=== PATIENT | female | born 1955 | race Caucasian/White ===

== ENCOUNTER 2019-03-12 16:07 | Outpatient (CLI) | payer MEDICARE, SELFPAY ==
--- NOTE | 2019-03-12 16:39 | XR_ITS ---
WS: [id number] RIGHT KNEE: 3 VIEW(S) TECHNIQUE: AP, oblique(s) and lateral. HISTORY: PAIN IN RIGHT KNEE, LATERAL ASPECT COMPARISON: None available. No fracture or dislocation. Mild narrowing of all 3 compartments. No fractures. No joint effusion. No soft tissue abnormality. XR/XR knee RT 3V* [id number] IMPRESSION: 1. Very mild tricompartment osteoarthritis. 2. No fracture.
== END 2019-03-12 16:08 | disposition home or self-care (01) ==
LOC: RADWPI 16:19
PROVIDERS: PCP Internal Medicine; Visit Provider Internal Medicine
DX: M25.561 Pain in right knee (principal)
CPT/HCPCS: 73562

== ENCOUNTER 2019-03-15 07:41 | Outpatient (CLI) | payer MEDICARE, SELFPAY ==
--- NOTE | 2019-03-15 07:58 | MR_ITS ---
WS: [id number] MRI RIGHT KNEE NONCONTRAST TECHNIQUE: Axial PD, coronal PD fat sat, coronal PD, sagittal PD, and sagittal PD fat-sat images obta ined. CLINICAL INFORMATION: PAIN IN RIGHT KNEE COMPARISON: None. FINDINGS: Distal quadriceps and patella tendons are intact. Prepatellar soft tissue edema. Moderate suprapatell ar effusion. Soft tissue edema about the knee. Popliteal cyst measuring 1.3 x 2.6 x 4.2 cm. Anterior and posterior cruciate ligaments are intact. Chronic intrasubstance signal abnormality invol ving the medial meniscus. Edema in Hoffa's fat pad. Complex tears involving the lateral meniscus. Hor izontal and radial tears involving the posterior horn lateral meniscus. Blunting of the anterior horn with complex tear and loss of the anterior horn. Associated edema. Mild chondromalacia patella. Normal medial and lateral patellar retinaculum. Moderate chondromalacia involving the medial and lateral joint compartments with edema in the lateral tibial plateau. Partial tear involving the lateral collateral ligament. Distal ligament is intact. T2 signal abnormality. Me dial collateral ligament is intact. MR/MR knee RT wo con* [id number] IMPRESSION: 1. Anterior posterior cruciate ligaments are intact. 2. Complex tear involving the lateral meniscus with complete loss of the anter ior horn with edema. Horizontal and radial tears involving the posterior horn. Associated edema in the lateral tibial plateau. 3. Moderate suprapatellar effusion. 4. Popliteal cyst measuring 4.2 cm in maximum dimension. 5. Moderate chondromalacia patella. 6. Moderate chondral malacia involving the medial lateral joint compartments w ith joint space narrowing worse involving the lateral compartment. 7. Partial tear involving the proximal lateral collateral ligament. Distal lig ament is intact.
== END 2019-03-15 07:42 | disposition home or self-care (01) ==
LOC: RADWPI 07:49
PROVIDERS: PCP Internal Medicine; Visit Provider Internal Medicine
DX: S83.271A Complex tear of lateral meniscus, current injury, right knee, initial encounter (principal); X58.XXXA Exposure to other specified factors, initial encounter; M71.21 Synovial cyst of popliteal space [Baker], right knee; M22.41 Chondromalacia patellae, right knee; M25.561 Pain in right knee
CPT/HCPCS: 73721

== ENCOUNTER → 2019-04-02 09:03 | Outpatient (BNVA) | payer MEDICARE, SELFPAY | PROVIDERS: PCP Internal Medicine; Referring Provider Internal Medicine; Visit Provider Specialist | DX: M25.561 Pain in right knee (principal) | CPT/HCPCS: 73560; 73565 ==

== ENCOUNTER 2019-11-02 10:18 | Outpatient (CLI) | payer MEDICARE, SELFPAY ==
--- NOTE | 2019-11-02 10:29 | MM_ITS ---
WS: [id number] BILATERAL SCREENING DIGITAL MAMMOGRAM WITH CAD HISTORY: SCREENING COMPARISON: 03/22/2017 and 07/11/2018 Bilateral CC and MLO views submitted. Computer aided detection analyzed. Breast composition: There are scattered areas of fibroglandular density. No suspicious masses, microc alcifications or architectural distortion. MM/[place] [id number] IMPRESSION: BI-RADS: 1-Negative FOLLOW UP: 1 Year Follow-up
== END 2019-11-02 10:19 | disposition home or self-care (01) ==
LOC: RADSHAW 10:21
PROVIDERS: PCP Internal Medicine; Visit Provider Internal Medicine
DX: Z12.31 Encounter for screening mammogram for malignant neoplasm of breast (principal)
CPT/HCPCS: 77067

== ENCOUNTER → 2020-02-07 08:19 | Outpatient (BNVA) | payer MEDICARE, SELFPAY | PROVIDERS: PCP Internal Medicine; Visit Provider Surgery | DX: Z20.828 Contact with and (suspected) exposure to other viral communicable diseases (principal); Z12.11 Encounter for screening for malignant neoplasm of colon; Z01.812 Encounter for preprocedural laboratory examination | CPT/HCPCS: 87635 ==

== ENCOUNTER → 2020-02-13 10:35 | Outpatient (BNVA) | payer MEDICARE, SELFPAY | PROVIDERS: PCP Internal Medicine; Visit Provider Surgery | DX: Z20.828 Contact with and (suspected) exposure to other viral communicable diseases (principal); Z12.11 Encounter for screening for malignant neoplasm of colon | CPT/HCPCS: 87635 ==

== ENCOUNTER 2020-02-18 05:48 | Day surgery (SDC) | payer MEDICARE, SELFPAY ==
[2020-02-07 14:04] VITALS: BMI 36.6
[2020-02-18 05:58] VITALS: BP 168/94; PULSE 93; RESP 18; TEMP 36.6; O2SAT 98
--- NOTE | 2020-02-18 06:14 | W.PM.OPSFHP ---
Same Day Surgery H&P Indication for Procedure/HPI DATE OF PROCEDURE: February 18, 2020 CHIEF COMPLAINT/INDICATIONFOR SURGICAL PROCEDURE: Screening colonoscopy PREOP DIAGNOSIS: Screening colonoscopy PLANNED PROCEDRUE: Operation Date: 02/18/20 07:00 Proposed Procedures p Colonoscopy 71862 z12.11(Not Applicable) - Mihir Noble MD This is a pleasant 64 years old female patient presents to my practice with history of colonoscopy being done about 10 years ago and was reported as normal. Patient recalls that she has intermittent bleeding per rectum likely due to hemorrhoidal disease. She denies history of colon cancer or nonintentional weight loss. Interval history 02/18/2020 Patient comes today for screening colonoscopy ROS All systems have been reviewed negative except as per the above or per problem list Medications/Allergies* Home Medications Medication Instructions Recorded Confirmed Type lovastatin 20 mg tablet 20 mg PO DAILY 04/02/19 02/18/20 History Allergies/Adverse Reactions Allergy/AdvReac Type Severity Reaction Status Date / Time Penicillins Allergy hives Verified 02/18/20 06:14 Sulfa (Sulfonamide Allergy anaphylaxis Verified 02/18/20 06:14 Antibiotics) Pertinent History/Comorbid Conditions* Family History (Updated 04/02/19 @ 09:35 by Kayce Kauffman LPN) Diabetes Mother Social History Smoking and tobacco status: never smoked Alcohol intake: never Pertinent Exam Findings alert, oriented x 3, clear to auscultation bilaterally, regular rate & rhythm and procedure specific exam findings (Abdominal examination nontender nondistended soft/obese) Recommendations Surgery/Procedure today (Colonoscopy with possible biopsy and possible polypectomy) Coding Level of Care Code Acute Carbonation Equipment Operator for Romelia Resendiz
[2020-02-18] MEDS: sodium chloride 0.9% 1,000 ML 30 ML IV (06:23)
--- NOTE | 2020-02-18 06:38 | ANES.PREANE2 ---
Pre-Anesthetic Assessment Pre-Anesthetic Assessment: Height/Weight: Height 1.63 m Weight 96.615 kg Temp Pulse Resp BP Pulse Ox 97.8 F 93 18 168/94 98 02/18/20 05:58 02/18/20 05:58 02/18/20 05:58 02/18/20 05:58 02/18/20 05:58 Preop Diagnosis: Screening colonoscopy Proposed Procedure: Operation Date: 02/18/20 07:00 Proposed Procedures p Colonoscopy 29964 z12.11(Not Applicable) - Mihir Noble MD Was Beta Eddie taken within 24 hours: N/A Last intake: Intake Last Liquid Date 02/17/20 Last Liquid Time 19:30 Last Solid Date 02/16/20 Last Solid Time 21:00 Social: Social History: No alcohol and No tobacco Airway: Submandibular: WNL Cervical ROM: WNL MP: 2 Dentition: Full Pulmonary: Pulmonary: None reported CV/HEM: CV/HEM: None reported : : None reported Hepatic: Hepatic: None reported GI: GI: None reported Metabolic: Metabolic: None reported Musc/skel: Musc/skel: None reported Neuropsych: Neuropsych: None reported Anesthetic Plan: ASA status: 2 Risk of > 500 ml blood loss (7ml/kg in children): No Meds/Allergies Current Medications: Current Medications Generic Name Dose Route Start Last Admin Trade Name Freq PRN Reason Stop Dose Admin Sodium Chloride 1,000 mls @ 30 ml s/hr 02/18/20 06:00 02/18/20 06:23 Sodium Chloride 0.9% IV 02/19/20 05:59 30 mls/hr .Q24H LINDSEY Administration PFSH Anesthesia PFSH: Family History Mother Diabetes Social History Smoking and tobacco status: never smoked Alcohol intake: never Data Anesthesia Cardiac Studies: No Data to Display
[2020-02-18 07:23] VITALS: BP 168/94; PULSE 93; RESP 18; TEMP 36.6; O2SAT 98
[2020-02-18 07:45] VITALS: BP 117/77; PULSE 66; RESP 18; O2SAT 96
--- NOTE | 2020-02-18 07:53 | ANE.PACU2 ---
Inpatient post-anesthesia follow up: Airway intact: Yes Vital signs: Temperature 97.8 F Pulse Rate 66 Respiratory Rate 18 Blood Pressure 117/77 Pulse Oximetry 96 Oxygen Delivery Me thod Room Air Oxygen Flow Rate 2 Fraction of Inspir ed Oxygen Hydration adequate: Yes Nausea and vomiting: No Pain level: 1 Mental status: Baseline
== END 2020-02-18 07:57 | disposition home or self-care (01) ==
PROVIDERS: PCP Internal Medicine; Visit Provider Surgery
PROC: 0DJD8ZZ Inspection of Lower Intestinal Tract, Via Natural or Artificial Opening Endoscopic (ICD-10-PCS; CPT 45378; principal; 2020-02-18 07:00)
DX: Z12.11 Encounter for screening for malignant neoplasm of colon (principal); K57.30 Diverticulosis of large intestine without perforation or abscess without bleeding; Z83.3 Family history of diabetes mellitus
CPT/HCPCS: 12345; G0121; J7030

== ENCOUNTER 2020-12-16 09:10 | Outpatient (CLI) | payer MEDICARE, SELFPAY ==
--- NOTE | 2020-12-16 09:17 | MM_ITS ---
WS: [id number] BILATERAL DIGITAL SCREENING MAMMOGRAPHY WITH CAD CLINICAL INFORMATION: SCREENING HISTORY: Screening mammogram. No current complaints. COMPARISON: November 02, 2019 TECHNIQUE: Bilateral CC and MLO views. FINDINGS: Scattered fibroglandular densities bilaterally. A few benign punctate calcifications. No suspicious f ocal mass, asymmetry, calcifications, or architectural distortion. No evidence of malignancy. MM/[place] [id number] IMPRESSION: BI-RADS: 2-Benign FOLLOW UP: 1 Year Follow-up Recommend return to annual screening mammography.
== END 2020-12-16 09:11 | disposition home or self-care (01) ==
PROVIDERS: PCP Internal Medicine; Visit Provider Internal Medicine
DX: Z12.31 Encounter for screening mammogram for malignant neoplasm of breast (principal)
CPT/HCPCS: 77067

== ENCOUNTER 2020-12-19 14:33 | Outpatient (CLI) | payer MEDICARE, SELFPAY ==
--- NOTE | 2020-12-19 14:51 | XR_ITS ---
WS: [id number] Exam: XR DEXA axial skeleton* [id number] Date/Time of Exam: 12/19/2020 2:51 PM Reason For Exam: ASYMTOMATIC POSTMENOPAUSAL STATUS DEXA BONE DENSITOMETRY Microtask The L1-L4 bone mineral density measures 1.104 g/cm2. This corresponds to a T score of -0.6 and Z scor e of 0.3. Left femoral neck bone mineral density measures 0.831 g/cm2. This corresponds to T score of -1.4 and Z score of -0.6. Right femoral neck bone mineral density measures 0.804 g/cm2. This corresponds to a T score of -1.6 a nd Z score of -0.8. Mean femoral neck bone mineral density measures 0.818 g/cm2. This corresponds to a T score of -1.5 an d Z score of -0.7 XR/XR DEXA axial skeleton* [id number] IMPRESSION: Bone mineral density lies in the osteopenic range. Refer to detailed summary.
== END 2020-12-19 14:34 | disposition home or self-care (01) ==
PROVIDERS: PCP Internal Medicine; Visit Provider Internal Medicine
DX: Z78.0 Asymptomatic menopausal state (principal)
CPT/HCPCS: 77080

== ENCOUNTER 2021-01-02 09:36 | Outpatient (CLI) | payer MEDICARE, SELFPAY ==
[2021-01-02 09:59] VITALS: BMI 33.8
--- NOTE | 2021-01-02 10:00 | ECG_ITS ---
[facility] Test Date: 2021-01-02 Pat Name: Niyah Holt Department: Room: Gender: Female Java Security Architect: : 1955 Requested By: Neelima Patrick Order Number: [id number] Bill MD: Ligia Ni M.D. Interpretive Statements NAME OF STUDY: LEXISCAN SESTAMIBI STRESS TEST INDICATION: Chest Pressure PROCEDURE: At the baseline, the blood pressure was 129/64 mmHg, oxygen saturation 95% with a heart rate of 67 bpm. The electrocardiogram showed normal sinus rhythm, normal axis. Poor anterior R wave progression. Nonspecific T wave abnormality. The Lexiscan was infused over a period of 20 seconds. A total of 0.4 milligrams of Lexiscan was infused. The stress phase was continued for a total of 5 minutes. Heart rate at the end of the stress phase was 85 bpm, oxygen saturation 98% with a blood pressure of 114/50 mmHg. The EKG at the peak infusion revealed sinus rhythm with no significant ST-T wave changes. Sestamibi was injected 20 seconds after the Lexiscan infusion. Blood pressure at the end of the recovery phase was 112/55 mmHg, oxygen saturation 96% with a heart rate of 84 beats per minute. CONCLUSION: 1. No significant EKG changes with the LexiScan infusion. 2. No LexiScan induced chest pain or cardiac arrhythmia. 3. Normal blood pressure and heart rate response. 4. Sestamibi/sestamibi perfusion scan pending; see separate report. Electronically Signed On 01-05-2021 18:15:17 MANAGER ONCOLOGY by Ligia Ni M.D. [email or web address]
--- NOTE | 2021-01-02 10:00 | NMCV_ITS ---
NM aislinn perf SPECT r/s* [id number] Niyah Holt Age: 65 Gender: F : 1955 Exam Date: 01/02/2021 11:02 Ordering Phys: Neeliam Gong MD Technologist: KASANDRA Aguirre Exam Location: [facility] Indications: CHEST PAIN STRESS TEST Please [facility] for [facility] IMAGE PROTOCOL Rest/Stress 1 Lexiscan Day Radiopharmaceutical Dose (mCi) Administration Site Administered by Rest: Tc-99m 10.5 IV Eyal Lerma, KASANDRA Sestamibi Stress:Tc-99m 32.3 IV KASANDRA Nunez Sestamibi Rest: 02-Jan-2021 30 Discovery 630 Stress: 02-Jan-2021 60 Discovery 630 0.4mg Lexiscan. Images obtained in supine and prone position. SPECT RESULTS Technical Quality: Excellent Raw Data Analysis: Normal Image Corrections: No attenuation or motion correction applied Summed Stress Score: 8 Summed Rest Score: 13 Summed Difference Score: 0 PERFUSION FINDINGS Medium size perfusion abnormality of moderate severity of mid to apical inferior, mid to apical inferolateral, apical anterior apical septal and apical grider on rest images with improved tracer uptake in apical septal, apical anterior and inferolateral girder on stress images. This may be suggestive of attenuation artifact. FUNCTIONAL RESULTS (calculated via Gated SPECT) Stress Image LV EF (%): 85 Stress EDV (mL):55 TID: 0.9 Stress ESV (mL):8 FUNCTIONAL FINDINGS: The left ventricle is normal in size. Transient Ischemia Dilatation of 0.9. The left ventricular ejection fraction is normal with a value of 85%. There is hyperdynamic left ventricular wall thickening with no regional wall motion abnormality. IMPRESSIONS 1. Small sized perfusion abnormality of moderate severity of mid to apical inferior and mid inferolateral grider. This may represent attenuation artifact or old myocardial infarction. 2. Small sized paradoxical perfusion abnormality of apical septal and apical grider, likely represents attenuation artifact. 3. Overall left ventricular systolic function is normal without regional wall motion abnormalities, LVEF=85%. 4. No significant EKG changes with Lexiscan infusion. 5. No coronary ischemia based on the study Ligia Ni MD (Electronically Signed) Final Date: 05 January 2021 18:26 S
[2021-01-02] MEDS: regadenoson 0.4 Mg/5 ml Syringe IVP (11:42)
[2021-01-02 11:44] VITALS: BP 112/55; PULSE 82
== END 2021-01-02 09:37 | disposition home or self-care (01) ==
LOC: CDL 09:37
PROVIDERS: PCP Internal Medicine; Visit Provider Internal Medicine
DX: R07.9 Chest pain, unspecified (principal)
CPT/HCPCS: 78452; 93017; A9500; J2785

== ENCOUNTER → 2021-07-08 13:33 | Outpatient (BNVA) | payer MEDICARE, SELFPAY | PROVIDERS: PCP Internal Medicine; Visit Provider Surgery | DX: K95.09 Other complications of gastric band procedure (principal) | CPT/HCPCS: 99213 ==

== ENCOUNTER 2021-09-02 07:20 | Day surgery (SDC) | payer MEDICARE, SELFPAY ==
[2021-08-31 13:30] VITALS: BMI 28.3
[2021-09-02 07:46] VITALS: BP 150/70; PULSE 60; RESP 18; TEMP 36.3; O2SAT 98
[2021-09-02] MEDS: sodium chloride 0.9% 1,000 ML 30 ML IV (08:01)
--- NOTE | 2021-09-02 08:36 | ANES.PREANE2 ---
Pre-Anesthetic Assessment Height/Weight: Height 1.63 m Weight 74.843 kg Temp Pulse Resp BP Pulse Ox 97.3 F L 60 18 150/70 98 09/02/21 07:46 09/02/21 07:46 09/02/21 07:46 09/02/21 07:46 09/02/21 07:46 Preop Diagnosis: Screening colonoscopy Operation Date: 09/02/21 09:00 Proposed Procedures p EGD 27219/R11.2(Not Applicable) - Mihir Noble MD Familial anesthetic complications: None Was Beta Eddie taken within 24 hours: N/A Was Clonidine taken within 24 hours: N/A Last intake: Intake Last Liquid Date 09/01/21 Last Liquid Time 21:30 Last Solid Date 09/01/21 Last Solid Time 17:30 Social No alcohol and No tobacco Exam alert, oriented x 3, clear to auscultation bilaterally and regular rate & rhythm Airway Submandibular: within normal limits Cervical ROM: within normal limits Mallampati: Class II Dentition: full History/ROS No significant complaints Pulmonary None reported CV/HEM None reported None reported Hepatic None reported GI Gastroesophageal Reflux Disease Reflux Hx of gastric band Metabolic None reported Musc/skel Osteoarthritis/DJD Neuropsych None reported Anesthetic Plan ASA status: 2 Anesthesia: Anesthesia Evaluation, General and MAC Other: I discussed with the patient risks, goals, and benefits of MAC and general anesthesia. We discussed spectrum of MAC anesthesia including conversion to general as well as possibility of recall of intraoperative stimuli including discomfort/pain. Patient agrees to proceed with MAC. Risk of > 500 ml blood loss (7ml/kg in children): No Medications/Allergies Home Medications Medication Instructions Recorded Confirmed Last Taken Type lovastatin 20 mg tablet 20 mg PO DAILY 04/02/19 09/02/21 09/01/21 History diphenhydramine HCl 50 mg capsule 50 mg PO DAILY PRN cap 07/08/21 09/02/21 08/30/21 History Allergies Allergy/AdvReac Type Severity Reaction Status Date / Time Penicillins Allergy hives Verified 08/31/21 13:30 Sulfa (Sulfonamide Allergy anaphylaxis Verified 08/31/21 13:30 Antibiotics) Current Medications Generic Name Dose Route Start Last Admin Trade Name Freq PRN Reason Stop Dose Admin Sodium Chloride 1,000 mls @ 30 mls/hr 09/02/21 07:30 09/02/21 08:01 Sodium Chloride 0.9% IV 09/03/21 07:29 30 mls/hr .Q24H LINDSEY Administration PFSH Anesthesia Medical History Diverticulosis Surgical History Hx of laparoscopic gastric banding Family History Mother Diabetes Social History Smoking and tobacco status: never smoked Alcohol intake: never Data Anesthesia Cardiac Studies: Sestamibi Stress Test (Cardiology) 01/02/21
--- NOTE | 2021-09-02 09:01 | W.PM.OPSFHP ---
Same Day Surgery H&P Indication for Procedure/HPI DATE OF PROCEDURE: September 02, 2021 CHIEF COMPLAINT/INDICATIONFOR SURGICAL PROCEDURE: Issues with gastric band PREOP DIAGNOSIS: Screening colonoscopy PLANNED PROCEDURE: Operation Date: 09/02/21 09:00 Proposed Procedures p EGD 58036/R11.2(Not Applicable) - Mihir Noble MD 07/08/2021 This is a pleasant 65 years old female patient well-known to me from previous clinical encounter.? Patient had history of laparoscopic adjustable gastric band placement back in May 2009 and initial weight was 250 pounds and she dropped 180 pounds.? Did regain some Weight back.? Last time the band was adjusted back in 2011.? And she is not sure if she does have some fluid but most likely all the fluid was taken out.? Her description.? Her current weight is 173 pounds with a BMI of 31.6.? Patient reports history of repeated nausea and vomiting with component of difficulty in swallowing in association with worsening acid reflux.? Likely related to her gastric band.? Patient is referred to my practice today for consideration of removal of the gastric band. 09/02/2021 Patient comes today for diagnostic EGD. For unclear reason patient did not get her upper GI study yet ROS All systems have been reviewed negative except as for the above or per problem list. Medications/Allergies* Home Medications Medication Instructions Recorded Confirmed Type lovastatin 20 mg tablet 20 mg PO DAILY 04/02/19 09/02/21 History diphenhydramine HCl 50 mg capsule 50 mg PO DAILY PRN cap 07/08/21 09/02/21 History Allergies/Adverse Reactions Allergy/AdvReac Type Severity Reaction Status Date / Time Penicillins Allergy hives Verified 09/02/21 09:03 Sulfa (Sulfonamide Allergy anaphylaxis Verified 09/02/21 09:03 Antibiotics) Current Medications: Generic Name Dose Route Start Last Admin Trade Name Freq PRN Reason Stop Dose Admin Sodium Chloride 1,000 mls @ 30 mls/hr 09/02/21 07:30 09/02/21 08:01 Sodium Chloride 0.9% IV 09/03/21 07:29 30 mls/hr .Q24H LINDSEY Administration Pertinent History/Comorbid Conditions* Medical History (Updated 07/11/21 @ 16:32 by Mihir Noble MD) Diverticulosis Surgical History (Updated 07/11/21 @ 16:32 by Mihir Noble MD) Hx of laparoscopic gastric banding Family History (Updated 04/02/19 @ 09:35 by Kayce Kauffman RN) Diabetes Mother Social History Smoking and tobacco status: never smoked Alcohol intake: never Pertinent Exam Findings alert, oriented x 3, regular rate & rhythm and procedure specific exam findings (Abdominal examination nontender nondistended soft/palpable port on the left) Pertinent Data Port of the gastric band palpable on the left side of the abdomen Recommendations Surgery/Procedure today (EGD with possible biopsy) Coding Level of Care Code Acute Bus And Trolley Inspecting Dispatcher for Chg Fwd
[2021-09-02 09:20] VITALS: BP 95/59; PULSE 56; RESP 16; TEMP 36.4; O2SAT 100
[2021-09-02 09:30] VITALS: BP 111/59; PULSE 55; RESP 18; O2SAT 98
--- NOTE | 2021-09-02 13:32 | ANE.PACU2 ---
Inpatient post-anesthesia follow up: Airway intact: Yes Vital signs: Temperature 97.5 F Pulse Rate 55 Respiratory Rate 18 Blood Pressure 111/59 Pulse Oximetry 98 Oxygen Delivery Me thod Room Air Oxygen Flow Rate 3 Fraction of Inspir ed Oxygen Hydration adequate: Yes Nausea and vomiting: No Pain level: 1 Mental status: Baseline
== END 2021-09-02 09:55 | disposition home or self-care (01) ==
PROVIDERS: PCP Internal Medicine; Visit Provider Surgery
PROC: 0DJ08ZZ Inspection of Upper Intestinal Tract, Via Natural or Artificial Opening Endoscopic (ICD-10-PCS; CPT 43235; principal; 2021-09-02 09:00)
DX: R11.2 Nausea with vomiting, unspecified (principal); K21.00 Gastro-esophageal reflux disease with esophagitis, without bleeding; K29.50 Unspecified chronic gastritis without bleeding; Z98.84 Bariatric surgery status
CPT/HCPCS: 43239; 88305; J2704; J7030

== ENCOUNTER 2021-09-29 09:02 | Outpatient (CLI) | payer MEDICARE, SELFPAY ==
--- NOTE | 2021-09-29 09:08 | FL_ITS ---
WS: [id number] FL upper GI w air* [id number] REASON FOR EXAM: HX OF LAPAROSCOPIC ADJUSTABLE GASTRIC BANDING FLUOROSCOPY TIME: 2.2 # OF SPOT FILMS: 50 TECHNIQUE: Swallowing of barium was performed in the upright and prone HART and supine LPO positions. Multiple sw allows were evaluated with fluoroscopy and and rapid sequence spot films to evaluate motility. FINDINGS: Normal function of the oral and hypopharynx with no aspiration. Intermittent loss of the primary peristaltic wave in the esophagus with moderate retention of barium and episodes of retrograde reflux from the retained barium. Tertiary contractions. The bearing could be cleared with additional dry swallows. There is a moderately large herniation of gastric fundus into the mediastinum proximal to the lap ban d. There is no Schatzki ring or stricture. There is relatively free reflux. The barium flowed readily through the banded stomach and through the pylorus and duodenum. FL/FL upper GI w air* [id number] IMPRESSION: Esophageal dysmotility, and reflux as above.
== END 2021-09-29 09:03 | disposition home or self-care (01) ==
LOC: RAD 09:02
PROVIDERS: PCP Internal Medicine; Visit Provider Surgery
DX: Z98.84 Bariatric surgery status (principal)
CPT/HCPCS: 74246

== ENCOUNTER → 2021-10-05 08:41 | Outpatient (BNVA) | payer MEDICARE, SELFPAY | PROVIDERS: PCP Internal Medicine; Visit Provider Surgery | DX: Z09 Encounter for follow-up examination after completed treatment for conditions other than malignant neoplasm (principal); K95.09 Other complications of gastric band procedure | CPT/HCPCS: 99213 ==

== ENCOUNTER 2021-11-09 16:58 | Observation (INO) | payer MEDICARE, SELFPAY ==
[2021-11-06 13:54] VITALS: BMI 27.4
[2021-11-09] VITALS (27 sets, daily range): BP systolic 105–151; BP diastolic 43–85; PULSE 65–102; RESP 13–21; TEMP 36.2–37.1; O2SAT 92–100; BMI 29.7
--- NOTE | 2021-11-09 06:12 | W.PM.OPSFHP ---
Same Day Surgery H&P Indication for Procedure/HPI DATE OF PROCEDURE: November 09, 2021 CHIEF COMPLAINT/INDICATIONFOR SURGICAL PROCEDURE: Worsening acid reflux PREOP DIAGNOSIS: Difficulty in swallowing PLANNED PROCEDURE: Operation Date: 11/09/21 07:00 Proposed Procedures p lap poss open removal of lap band and egd [id number] ,K95.09(Not Applicable) - Mihir Noble MD s EGD(Not Applicable) - Mihir Noble MD This is a pleasant 66 years old female patient comes today for schedule laparoscopic removal of adjustable gastric band possible open with intraoperative EGD. Patient was placed on liquid protein diet to downsize the volume of the liver with a current weight of 160 pounds and a BMI of 27.5 ROS All systems have been reviewed negative except as for the above or per problem list. Medications/Allergies* Home Medications Medication Instructions Recorded Confirmed Type lovastatin 20 mg tablet 20 mg PO DAILY 04/02/19 11/09/21 History diphenhydramine HCl 50 mg capsule 50 mg PO DAILY PRN allergies 07/08/21 11/09/21 History Allergies/Adverse Reactions Allergy/AdvReac Type Severity Reaction Status Date / Time Penicillins Allergy hives Verified 11/09/21 06:13 Sulfa (Sulfonamide Allergy anaphylaxis Verified 11/09/21 06:13 Antibiotics) Pertinent History/Comorbid Conditions* Medical History (Updated 09/02/21 @ 09:27 by Mihir Noble MD) Diverticulosis Surgical History (Updated 07/11/21 @ 16:32 by Mihir Noble MD) Hx of laparoscopic gastric banding Family History (Updated 04/02/19 @ 09:35 by Kayce Kauffman RN) Diabetes Mother Social History Smoking and tobacco status: never smoked Alcohol intake: never Pertinent Exam Findings alert, oriented x 3, clear to auscultation bilaterally, regular rate & rhythm and procedure specific exam findings (Abdominal exam nontender nondistended soft) Gastric band port in the epigastric area without complication Pertinent Data Patient will require to be kept in an observation status postoperatively Recommendations Surgery/Procedure today (Laparoscopic removal of gastric band possible open with EGD) Coding Level of Care Code Acute Aerophysics Engineer for Romelia Resendiz
[2021-11-09] MEDS: sodium chloride 0.9% 1,000 ML 999 ML IV (06:29)
[2021-11-09] MEDS: pantoprazole 40 mg SDV IVP (06:33)
[2021-11-09] MEDS: heparin 5,000 unit/mL INJ 1 mL 5000 UNIT SUBCUT (06:35)
--- NOTE | 2021-11-09 06:36 | ANES.PREANE2 ---
Pre-Anesthetic Assessment Height/Weight: Height 1.63 m Weight 72.575 kg Temp Pulse Resp BP Pulse Ox O2 Del Method 97.5 F L 65 18 134/68 98 11/09/21 06:01 11/09/21 06:01 11/09/21 06:01 11/09/21 06:01 11/09/21 06:01 11/09/21 06:01 Preop Diagnosis: Difficulty in swallowing Operation Date: 11/09/21 07:00 Proposed Procedures p lap poss open removal of lap band and egd [id number] 80365 ,K95.09(Not Applicable) - Mihir Noble MD s EGD(Not Applicable) - Mihir Noble MD Familial anesthetic complications: None Was Beta Eddie taken within 24 hours: N/A Was Clonidine taken within 24 hours: N/A Last intake: Intake Last Liquid Date 11/08/21 Last Liquid Time 21:00 Last Solid Date 11/02/21 Social No alcohol and No tobacco Exam alert, oriented x 3, clear to auscultation bilaterally and regular rate & rhythm Airway Mallampati: Class I Dentition: full GI Gastroesophageal Reflux Disease Gastritis, hx lap band Anesthetic Plan ASA status: 2 Anesthesia: General Risk of > 500 ml blood loss (7ml/kg in children): No Medications/Allergies Home Medications Medication Instructions Recorded Confirmed Last Taken Type lovastatin 20 mg tablet 20 mg PO DAILY 04/02/19 11/09/21 11/08/21 History diphenhydramine HCl 50 mg capsule 50 mg PO DAILY PRN allergies 07/08/21 11/09/21 11/08/21 20:00 History pantoprazole 40 mg tablet,delayed 40 mg PO DAILY 30 days #30 tabs 09/02/21 11/09/21 11/08/21 Rx release (Protonix) Allergies Allergy/AdvReac Type Severity Reaction Status Date / Time Penicillins Allergy hives Verified 11/09/21 06:13 Sulfa (Sulfonamide Allergy anaphylaxis Verified 11/09/21 06:13 Antibiotics) Current Medications Generic Name Dose Route Start Last Admin Trade Name Freq PRN Reason Stop Dose Admin Sodium Chloride 1,000 mls @ 999 mls/hr 11/09/21 06:17 11/09/21 06:29 Sodium Chloride 0.9% IV 11/09/21 07:17 999 mls/hr .Q1H1M ONE Administration PFSH Anesthesia Medical History Diverticulosis Surgical History Hx of laparoscopic gastric banding Family History Mother Diabetes Social History Smoking and tobacco status: never smoked Alcohol intake: never Data Anesthesia Cardiac Studies: Sestamibi Stress Test (Cardiology) 01/02/21
[2021-11-09] MEDS: scopolamine 1.5 Patch 1 PATCH TRANSDERMA (06:38)
[2021-11-09] MEDS: ciprofloxacin 400 MG/200 ML PREMIX 200 MG IV (07:10)
--- NOTE | 2021-11-09 09:56 | P.OP_ITS ---
Operative Report Date of procedure: November 09, 2021 Pre-op diagnosis: Preop Diagnosis Difficulty in swallowing Procedure done: Laparoscopic removal of gastric band and intraoperative EGD Implants: 15 Chilean rounded Eliezer drain Specimens removed/disposition: Gastric polyp Gastric band for gross pathology Surgeon: Mihir Noble MD Theatrical Dresser: Surgical sue [place] Circulating nurse Yuliana Anesthesia: General (GETA LOKIE ENGINEER Will Smart and Sameera) Estimated blood loss (mL): 25 IV fluids (mL): 1,400 Procedure: After identifying the patient in the holding area, patient was given Heparin subcutaneous, patient was then taken to the OR placed in supine position, intubated by anesthesia, IV antibiotics were given per protocol, SCDs were on and functioning, and the blockers were updated. Attempt Roy catheter insertion was not successful and I decided to abort, prep and drape of the abdomen was done under the usual sterile technique. I started by 15 cm below the xiphoid and 3 cm to the left of the midline 15 blade knife was used for skin incision, I used a 5 mm Opti-Vu port access to the abdominal cavity with a (0)10 mm scope, low flow gas followed by high flow at a pressure of 15 mm, followed by 5 mm trocar was placed at the left flank region again under direct visualization. Anesthesia was asked to have the patient in reverse T Britt.Under direct vision I was able to place a 12 mm port at the epigastric region towards the left of the midline , followed by 5 mm trocar was placed 3 fingerbreadths below the 12 mm trocar and towards the midline. Patient's liver size was markedly downsized with the help of preoperative liquid protein diet I started Dissection using the Enseal device at the band(Realize Brand) site following the tubing system ,combination of sharp and blunt dissection was used revealing the band encircling the stomach and evidence of pseudocapsule was noticed.I was able to take all adhesions down with appropriate hemostasis without violating the stomach.,appropriate dissection was achieved freeing the band from the surrounding adhesions. At this point I was able to unbuckle the band buckle,at this point the band was completely freed out from the encirclement around the stomach. I elected to put 2-0 silk sutures and 3 for hemostasis at the site of explantation of the band and there was no evidence of violation of the stomach. I scrubbed out and inserted in an upper endoscopy for completion purpose and had my virtual customer assistant to clamp distally onto the stomach,irrigation was done,I insufflated gas within the stomach to check for any leaks and there was nothing identified nor injuries, was no evidence of leak of air within the abdominal cavity,the esophagus and stomach looked within normal, the upper endoscopy was performed under direct visualization of the laparoscopic view. A small polyp was found in the gastric body that was removed and Endo Clip was placed At that point I deflated the stomach and the scope was retrieved out without complication I re-scrubbed again and created transverse incision at the previous scar of the actual port placement, I was able to dissect it and laparoscopically I cut the tubing and retrieved the port part and passed it to the circulating nurse for gross pathology, the rest of the tubing and the band system was retrieved out from the epigastric 12 mm trocar and the whole band system now was sent for gross pathology. Unfortunately the port was placed far away from the insertion site of the tubing that required 2 counterincisions. Thorough irrigation and suction was done, a laparoscopic survey was achieved showing no injury or bleeding.At that point I elected to place a 15 Chilean rounded Eliezer drain underneath the left lobe of the liver at the site of the explantation of the band, appropriate hemostasis was achieved, the drain was introduced via the left flank 5 mm port, secured to the abdominal wall with 2/0 silk Bilateral TAP (transversus abdominous plain peripheral nerve block )block using Exparel 20 mL Exparel 40 ml Normal saline 20 ml bupivacaine 0.25% 30 mL on each side injected 20 mL injected the port sites Under direct visualization a Manny Charlton device was used to close the 12 mm port site using #1 PDS suture, at that point gas was allowed to deflate, trocars were taken out under direct visualization, thorough irrigation was done at the port site followed by hemostasis, 2-0 Vicryl was used to close the subcutaneous layer, followed by skin saud then dry dressings Counts of instruments, needles and sponges were completed at the end of the procedure I Was present for the whole entire procedure Patient tolerated the procedure well and got extubated and was taken to the recovery room.
[2021-11-09] MEDS: ondansetron 2 mg/ML SDV 2 mL 4 MG IVP (10:18)
[2021-11-09] MEDS: fentaNYL 50 mcg/mL INJ 2mL IVP ×2 (10:19→10:37)
[2021-11-09] MEDS: HYDROmorphone 1 mg/mL INJ 1 mL 0.25 MG IVP (10:48)
--- NOTE | 2021-11-09 11:06 | SUR.PHASEI ---
patient's nausea is resolved, and pain under control. Patient is resting. DIANA drain emptied and recorded. notified, and report was called to RN on floor. Will transport patient by truong
[2021-11-09] MEDS: famotidine 20 mg/2 mL INJ IVP ×2 (12:16→23:13)
[2021-11-09] MEDS: HYDROmorphone 1 mg/mL INJ 1 mL IVP (12:17)
[2021-11-09] MEDS: sodium chloride 0.9% 1,000 ML 100 ML IV (12:17)
--- NOTE | 2021-11-09 14:12 | ANE.PACU2 ---
Inpatient post-anesthesia follow up: Airway intact: Yes Vital signs: Temperature 97.2 F Pulse Rate 102 Respiratory Rate 16 Blood Pressure 134/68 Pulse Oximetry 92 Oxygen Delivery Me thod Room Air Oxygen Flow Rate 8 Fraction of Inspir ed Oxygen Hydration adequate: Yes Nausea and vomiting: No Pain level: 1 Mental status: Baseline
[2021-11-09] MEDS: morphine 4 mg/mL SDV 1 mL 2 MG IVP (17:09)
[2021-11-09] MEDS: ciprofloxacin 200 MG/100 ML PREMIX 100 MG IV (18:03)
[2021-11-09] MEDS: acetaminophen 1,000 MG/100 ML PIGGYBACK 400 MG IV (21:06)
[2021-11-10] VITALS (8 sets, daily range): BP systolic 103–121; BP diastolic 52–73; PULSE 58–91; RESP 14–18; TEMP 36.8–37; O2SAT 93–97
[2021-11-10] MEDS: sodium chloride 0.9% 1,000 ML 100 ML IV ×2 (00:13→12:23)
[2021-11-10] MEDS: heparin 5,000 unit/mL INJ 1 mL 5000 UNIT SUBCUT ×2 (03:50→12:23)
[2021-11-10] MEDS: morphine 4 mg/mL SDV 1 mL 2 MG IVP (04:17)
[2021-11-10 04:57] LABS: Hematocrit 32.2 % (37.0-47.0); Hemoglobin 9.7 g/dL (11.5-15.3)
[2021-11-10 05:24] LABS: Blood Urea Nitrogen 5 mg/dL (8-23); Calcium 7.7 mg/dL (8.5-10.5); Carbon Dioxide 25 mmol/L (22-29); Chloride 105 mmol/L (98-107); Glomerular Filtration Rate 99.4 mL/min (90-130); Glucose 92 mg/dL (65-115); Osmolality Calculated 281 mOsm/kg (285-295); Sodium 137 mmol/L (136-145)
[2021-11-10] MEDS: calcium gluconate 0.9% NaCL 1 GM/50 ML PREMIX IV ×2 (05:57→06:32)
--- NOTE | 2021-11-10 08:00 | FL_ITS ---
WS: [id number] Limited upper GI examination, Gastrografin. HISTORY: Post gastric band removal and polyp removal. Fluoroscopy time: 2.9 minutes, 14 spot. COMPARISON: 09/29/2021. Gastric band is no longer present. Gastrografin flows normally through the GE junction with no persis tent high-grade stricture. There is very mild narrowing at the GE junction. No reflux was demonstrate d. Gastrografin moved readily from the stomach into the antrum and pylorus. Several clips are noted towa rds the pylorus and proximal duodenum. There is no extravasation of the contrast. The Gastrografin mi xture flowed readily through the stomach into the duodenum. FL/FL upper GI gastrografin [id number] IMPRESSION: 1. No extravasation of the Gastrografin from the stomach. 2. Postgastric band removal with no complications.
[2021-11-10] MEDS: diatrizoate meglumine 30 mL Sol PO (10:55)
[2021-11-10] MEDS: famotidine 20 mg/2 mL INJ IVP (12:23)
[2021-11-10] MEDS: acetaminophen 1,000 MG/100 ML PIGGYBACK 400 MG IV (12:23)
--- NOTE | 2021-11-10 13:25 | PC.CHAP ---
Pastoral Care Encounter/Spiritual Assessment Type of Contact [] Declined tufter hand visit [] Patient/Family/Request visit [] Outpatient visit [] Follow-up visit [] Physician referral [] Code/Alert [x] Routine visit [] Staff referral [] Actively dying [] Patient sleeping [] Family support [] [] Out of room [] Palliative care [] [x] Receiving care in room [] Pre-surgical visit [] Trauma [] Long length of stay [] ICU visit [] Other: Relational/Emotional Strength [] Patient feels connected with others/family/visitors/staff [] Distress [] Loneliness/isolation [] Abandonment Spirituality of Patient [] Person of Renee [] Attends Jew of their Renee [] Believes in Prayer [] Reads Bible or Moravian materials [] There are Spiritual issues to be addressed Transfer Car Operator Drier Interventions [] Prayer [] Active listening [] Non-anxious presence [] Spiritual/emotional support [] Crisis/trauma care [] Spiritual counseling [] Bereavement support [] Provided bereavement packet [] Provided Bible/devotional materials [] Provided toy/stuffed animal, coloring book to patient or family member [] Provided Communion [] Anointing/[place] [] Salvation [] Completed spiritual assessment [] Other: Impact on Illness or Injury [] Angry [] Fearful [] Anxious [] Often cries [] Exhaustion [] Unable to work [] Unable to attend episcopal [] Unable to walk/stand [] Unable to read [] Unable to drive [] Unable to eat/drink [] Unable to sleep [] Unable to be with family [] Patient intubated [] Other: Summary Time spent with patient
--- NOTE | 2021-11-10 14:10 | PM.SDS ---
Short Stay Summary Providers Date of Admit/Discharge: 11/14/21 Attending Provider: Mihir Noble MD Primary Care Provider: Neelima Gong MD HPI History of Present Illness Niyah Holt is a 66 year old female history of laparoscopic gastric band placed at outside facility many years ago and patient has been encountering repeated nausea and vomiting in spite of all the fluid being taken out from the gastric band. And subsequently she deemed to be an appropriate candidate for laparoscopic explantation of the gastric band. Review of Systems General: Reports: 10 or more systems reviewed and unremarkable except in HPI and below Home Meds/Allergies Home Medications and Allergies Home Medications Medication Instructions Recorded Confirmed Type lovastatin 20 mg tablet 20 mg PO DAILY 04/02/19 11/09/21 History diphenhydramine HCl 50 mg capsule 50 mg PO DAILY PRN allergies 07/08/21 11/09/21 History Allergies Allergy/AdvReac Type Severity Reaction Status Date / Time ciprofloxacin Allergy ALGY-Rash Verified 11/09/21 21:04 Penicillins Allergy hives Verified 11/09/21 06:13 Sulfa (Sulfonamide Allergy anaphylaxis Verified 11/09/21 06:13 Antibiotics) PFSH Acute PFSH: Medical History Complication of gastric band procedure Diverticulosis Surgical History Hx of laparoscopic gastric banding Family History Mother Diabetes Social History Smoking and tobacco status: never smoked Alcohol intake: never Vitals/I&O/Wt Last Vital Signs Temp 98.5 F 11/10/21 11:53 Pulse 58 L 11/10/21 11:53 Resp 16 11/10/21 11:53 BP 112/68 11/10/21 11:53 Pulse Ox 95 11/10/21 11:53 O2 Del Method 11/10/21 11:53 O2 Flow Rate 8 11/10/21 08:00 11/09/21 11/10/21 11/10/21 22:59 06:59 14:59 Intake Total 1054 / 4134 316 / 4450 1510 / 1510 Output Total 45 / 145 235 / 380 Balance 1009 / 3989 81 / 4070 1510 / 1510 Weight last 48 hrs Weight 173 lb 8 oz Physical Exam Narrative: Patient is conscious alert oriented X3 No apparent distress BMI 30 Head and neck examination PERRLA no masses no cervical lymphadenopathy no jaundice Cardiac examination audible S1-S2 no murmurs no gallops no arrhythmias Chest is clear bilateral,abscence of Rhonchi or wheezes,no surgical emphysema Abdomen nontender except slightly at the incision sites, incisions are clean dry and intact and skin saud in place nondistended soft no organomegaly guarding or rigidity/no signs of peritonitis Left sided abdominal drain in place with minimal serosanguineous output Extremities no cyanosis no clubbing no edema Hospital Course Admission Diagnoses Repeated nausea and vomiting related to gastric band placement Hospital Course Patient overall did well postoperatively and she was kept n.p.o. initially till the upper GI study was done and started the patient on clear liquid diet and tolerated that well. She continues to have stable vital signs and adequate urine output. Continue to have pharmacologic DVT prophylaxis and patient was ambulatory. Lab work was stable and patient met the appropriate and safe criteria for discharge home with drain care and teaching. Discharge Summary Patient was discharged home with specific education instructions about drain care and appropriate diet. The plan to return to surgery office in a week. SSS Data Data Completed and Pending: Completed Studies During Hospitalization Category Date Time Status FL upper GI gastr ografin [id number] Rout ine Exams 11/10/21 08:00 Completed Pathology: Surgic al [PTH] Routine Pth 11/09/21 10:08 Completed Pending at discharge Category Date Time Status ES surgery / GI i mages Routine Exams 11/09/21 06:44 Taken Basic Metabolic P delia AM LABS Lab 11/11/21 04:00 Ordered Basic Metabolic P delia AM LABS Lab 11/12/21 04:00 Ordered Hemoglobin and He matocrit AM LABS Lab 11/11/21 04:00 Ordered Hemoglobin and He matocrit AM LABS Lab 11/12/21 04:00 Ordered Addt'l Data from Hospital Stay: Upper GI study was done and did show Gastric band is no longer present. Gastrografin flows normally through the GE junction with no persistent high-grade stricture. There is very mild narrowing at the GE junction. No reflux was demonstrated. Gastrografin moved readily from the stomach into the antrum and pylorus. Several clips are noted towards the pylorus and proximal duodenum. There is no extravasation of the contrast. The Gastrografin mixture flowed readily through the stomach into the duodenum. FL/FL upper GI gastrografin [id number] IMPRESSION: ? 1.? No extravasation of the Gastrografin from the stomach. 2.? Postgastric band removal with no complications. Procedures Performed: Procedure done: Laparoscopic removal of gastric band and intraoperative EGD Implants: 15 Lebanese rounded Eliezer drain Specimens removed/disposition: Gastric polyp Gastric band for gross pathology Surgeon: Mihir Noble MD Service Line Layer: Surgical sue [place] Circulating nurse Yuliana Anesthesia: General (DIEGOA LENNY Pate and Sameera) Estimated blood loss (mL): 25 IV fluids (mL): 1,400 Procedure: After identifying the patient in the holding area, patient was given Heparin subcutaneous, patient was then taken to the OR placed in supine position, intubated by anesthesia, IV antibiotics were given per protocol, SCDs were on and functioning, and the blockers were updated. Attempt Roy catheter insertion was not successful and I decided to abort, prep and drape of the abdomen was done under the usual sterile technique. I started by 15 cm below the xiphoid and 3 cm to the left of the midline 15 blade knife was used for skin incision, I used a 5 mm Opti-Vu port access to the abdominal cavity with a (0)10 mm scope, low flow gas followed by high flow at a pressure of 15 mm, followed by 5 mm trocar was placed at the left flank region again under direct visualization.? Anesthesia was asked to have the patient in reverse T Britt.Under direct vision I was able to place a 12 mm port at the epigastric region towards the left of the midline , followed by 5 mm trocar was placed 3 fingerbreadths below the 12 mm trocar and towards the midline. Patient's liver size was markedly downsized with the help of preoperative liquid protein diet I started Dissection using the Enseal device at the band(Realize Brand) site following the tubing system ,combination of sharp and blunt dissection was used revealing the band encircling the stomach and evidence of pseudocapsule was noticed.I was able to take all adhesions down with appropriate hemostasis without violating the stomach.,appropriate dissection was achieved freeing the band from the surrounding adhesions. At this point I was able to unbuckle the band buckle,at this point the band was completely freed out from the encirclement around the stomach.? I elected to put 2-0 silk sutures and 3 for hemostasis at the site of explantation of the band and there was no evidence of violation of the stomach. ?I scrubbed out and inserted in an upper endoscopy for completion purpose and had my data analysis assistant to clamp distally onto the stomach,irrigation was done,I insufflated gas within the stomach to check for any leaks and there was nothing identified nor injuries, was no evidence of leak of air within the abdominal cavity,the esophagus and stomach looked within normal, the upper endoscopy was performed under direct visualization of the laparoscopic view.? A small polyp was found in the gastric body that was removed and Endo Clip was placed At that point I deflated the stomach and the scope was retrieved out without complication I re-scrubbed again and created transverse incision at the previous scar of the actual port placement, I was able to dissect it and laparoscopically I cut the tubing and retrieved the port part and passed it to the circulating nurse for gross pathology, the rest of the tubing and the band system was retrieved out from the epigastric 12 mm trocar and the whole band system now was sent for gross pathology. Unfortunately the port was placed far away from the insertion site of the tubing that required 2 counterincisions. Thorough irrigation and suction was done, a laparoscopic survey was achieved showing no injury or bleeding.At that point I elected to place a 15 Lebanese rounded Eliezer drain underneath the left lobe of the liver at the site of the explantation of the band, appropriate hemostasis was achieved, the drain was introduced via the left flank 5 mm port, secured to the abdominal wall with 2/0 silk Bilateral TAP (transversus abdominous plain peripheral nerve block )block using Exparel 20 mL Exparel 40 ml Normal saline 20 ml bupivacaine 0.25% 30 mL on each side injected 20 mL injected the port sites Under direct visualization a Manny Charlton device was used to close the 12 mm port site using #1 PDS suture, at that point gas was allowed to deflate, trocars were taken out under direct visualization, thorough irrigation was done at the port site followed by hemostasis, 2-0 Vicryl was used to close the subcutaneous layer, followed by skin saud then dry dressings Counts of instruments, needles and sponges were completed at the end of the procedure I Was present for the whole entire procedure Patient tolerated the procedure well and got extubated and was taken to the recovery room. Dictated By: Mihir Noble MD Signed By: Mihir Noble MD Signed Date/Time: 11/14/21 1021 Discharge Plan Discharge Patient Disposition: Home Condition: Stable Prescriptions: New hydrocodone-acetaminophen 5-325 mg tablet 1 tab PO Q6H PRN (Reason: pain) Qty: 28 0RF Continued lovastatin 20 mg tablet 20 mg PO DAILY diphenhydramine HCl 50 mg capsule 50 mg PO DAILY PRN (Reason: allergies) pantoprazole [Protonix] 40 mg tablet,delayed release (DR/EC) 40 mg PO DAILY 30 Days Qty: 30 3RF Discharge Orders: Discharge Order (Routine); Ordered 11/10/21 Ordered By: Mihir Noble Referrals: Mihir Noble MD [Physician] - 11/18/21 11:35 am (Return to surgery office in 1 week) Discharge Diet: As Directed Discharge Activity: Limit activity as instructed Patient Instructions: Hydrocodone/Acetaminophen (By mouth), Eliseo-White Drain Care (GEN), Gastric Polyps (DC), Adjustable Gastric Band Removal (GEN) Activity Restrictions/Additional Instructions: 1. Patient can shower after 48 hours from surgery 2. Remove secondary dressing can take down after 48 hours. 3. Up and walking as tolerated 4. Do lift more than 5 pounds first 2 weeks after surgery and not more than 25 pounds 6 to 8 weeks after surgery. 5. Do not operate heavy machinery or drive while using pain medications. 6.Contact the office or return to the ER for worsening nausea vomiting fevers or chills, or noticing any redness around incision sites or discharge. 7. Drain care and teaching Clear liquid diet first 24 to 48 hours then advance to full liquid diet until the patient sees me back in 1 week. Attestations Medical Necessity Statement*: Observation for perioperative care Time Spent in Patient Care*: greater than 30 min Status at Discharge: Cognitive status at discharge: cognitively intact, Behavioral status at discharge: cooperative, Functional status at discharge: independent ambulation Overall status at discharge: patient is progressing back to baseline Quality Metrics Clinical Quality Measures: [ No reported AMI, CVA or VTE this stay] Coding Level of Care Code Acute Fork Truck Driver for Romelia Resendiz
== END 2021-11-10 17:18 | disposition home or self-care (01) ==
PROVIDERS: Admitting Provider Surgery; PCP Internal Medicine; Visit Provider Surgery
PROC: 0DP64CZ Removal of Extraluminal Device from Stomach, Percutaneous Endoscopic Approach (ICD-10-PCS; CPT 43772; principal; 2021-11-09 07:00)
PROC: 0DJ08ZZ Inspection of Upper Intestinal Tract, Via Natural or Artificial Opening Endoscopic (ICD-10-PCS; CPT 43235; 2021-11-09 07:00)
DX: Z45.89 Encounter for adjustment and management of other implanted devices (principal); K21.9 Gastro-esophageal reflux disease without esophagitis; K31.7 Polyp of stomach and duodenum
CPT/HCPCS: 43774; 36415; 74240; 80048; 85014; 85018; 88300; 88305; 96372; C9113; C9290; G0378; J0610; J0744; J1100; J1170; J1644; J2270; J2370; J2405; J2704; J3010; J3490; J7030; Q9963

== ENCOUNTER 2021-11-15 09:15 | Emergency (ER) | payer MEDICARE, SELFPAY ==
[2021-11-15 09:27] VITALS: BP 144/93; PULSE 73; RESP 16; TEMP 36.6; O2SAT 99; BMI 28.3
[2021-11-15 09:38] VITALS: BP 142/69; PULSE 60; O2SAT 96
--- NOTE | 2021-11-15 09:38 | CTR_ITS ---
PROCEDURE INFORMATION: Exam: CT Abdomen And Pelvis Without Contrast Exam date and time: 11/15/2021 10:11 AM Age: 66 years old Clinical indication: Abdominal pain; Generalized; Prior surgery; Surgery date: 3-7 days post-operative; Surgery type: Lap band removal; Additional info: Right side abd pain-s/p surgery 5 days TECHNIQUE: Imaging protocol: Computed tomography of the abdomen and pelvis without contrast. Radiation optimization: All CT scans at this facility use at least one of these dose optimization techniques: automated exposure control; mA and/or kV adjustment per patient size (includes targeted exams where dose is matched to clinical indication); or iterative reconstruction. COMPARISON: ES surgery / GI images 11/09/2021 7:00 AM RADIATION DOSE METRICS: Total DLP (mGy-cm): 761.29 FINDINGS: Liver: The liver is homogeneous and is not enlarged. Gallbladder and bile ducts: Prior cholecystectomy. No biliary ductal dilatation allowing for that. Pancreas: No peripancreatic inflammation. No pancreatic ductal dilation. Spleen: The spleen is homogeneous and is not enlarged. There is accessory splenic tissue. Adrenal glands: No adrenal mass. Kidneys and ureters: No renal or ureteral calculus. No hydronephrosis when allowing for left parapelvic cyst formation up to 2.6 cm in size. Stomach and bowel: Possible endoscopic clip in the stomach. No bowel obstruction or ileus. There is diverticulosis, most prominently in the sigmoid colon, without diverticulitis. Appendix: The appendix has a normal caliber. There is gas and gastrointestinal contrast in the lumen. No appendiceal wall thickening or periappendiceal inflammation. Note the appendix is located in the left pelvis. Intraperitoneal space: No ascites or pneumoperitoneum. Vasculature: No abdominal aortic aneurysm. Lymph nodes: No pathologically enlarged lymph nodes. Urinary bladder: No urinary bladder calculus or wall thickening. Reproductive: Unremarkable as visualized. Bones/joints: No acute ossesous abnormality. Soft tissues: Postoperative changes in the anterior abdominal wall. Subcutaneous stranding at port sites which could be due to inflammation, edema or hemorrhage. No prior postoperative exam is available to help determine interval change. Tubular structure located anterior to the linea alba (5:18) presumably related to a prior procedure. Surgical drain present. CT/CT abdomen pelvis [facility] [id number] IMPRESSION: 1. Postoperative changes in the anterior abdominal wall. Subcutaneous edema, inflammation or hemorrhage. 2. Diverticulosis without diverticulitis. 3. No bowel obstruction or ileus. 4. Normal appendix.
--- NOTE | 2021-11-15 09:40 | ED_ITS ---
HPI - Abdominal Pain General: Chief Complaint: Abdominal Pain Stated Complaint: Post stomach surgery, pain in abd Time Seen by Provider: 11/15/21 09:31 Source: patient Mode of arrival: ambulatory Limitations: no limitations History of Present Illness: This patient comes to the emergency room because of right sided abdominal and flank pain. She states the pain began last night and is still present this morning. She states it has not migrated or moved in any other location. She is now 6 days status post outpatient surgery for removal of lap band. She has previously had a cholecystectomy as well as a total hysterectomy and an appendectomy. She denies any fevers. She states she has been drinking and on a soft diet. She has been urinating normally and has had some stool soft and semiformed. She does have a history of frequent urinary tract infections but no history of kidney stones. No other associated symptoms such as shortness of breath cough etc. MD elicited complaint: abdominal pain Location: R flank Relieving factors: nothing Context: recent surgery/procedure Associated Symptoms: Reports no associated symptoms; Denies chills, dysuria and fever(s) Review of Systems Const: Denies: fever(s) or chills Eyes: Denies: change in vision ENMT: Denies: odynophagia, nasal discharge or nasal congestion Card: Denies: chest pain or palpitations Resp: Denies: dyspnea, productive cough or non-productive cough GI: Reports: abdominal pain : Denies: difficulty voiding, dysuria, urinary frequency or urinary urgency Musc: Denies: neck pain, back pain, extremity pain or extremity swelling Skin/Breast: Denies: rash or erythema Neuro: Denies: headache(s), numbness in extremities or weakness in extremities Psych: Denies: anxiety Endo: Denies: polyuria, polydipsia or tired all the time Yovani/Lymph: Denies: easy bruising or easy bleeding PFSH ED PFSH: Medical History Complication of gastric band procedure Diverticulosis Surgical History Hx of laparoscopic gastric banding Family History Mother Diabetes Social History Smoking and tobacco status: never smoked Alcohol intake: never Physical Exam Narrative: EXAM NARRATIVE: Patient is alert and comfortable answers questions in a goal-directed fashion. Const: COMMON NORMALS: no acute distress, average body habitus and patient oriented x3 GENERAL APPEARANCE: cooperative and comfortable ORIENTATION/CONSCIOUSNESS: Yes awake HENMT: COMMON NORMALS: normocephalic, Normal nasal mucous membranes and turbinates present, moist oral mucous membranes and oropharynx normal HEAD & SCALP: normocephalic NOSE: Normal nasal mucous membranes and turbinates present Eye: COMMON NORMALS: Equal, round and reactive pupils present, EOMs intact bilaterally and conjunctivae normal CONJUNCTIVA: Yes conjunctivae normal PUPIL: Yes Equal, round and reactive pupils present Neck/C-Spine: COMMON NORMALS: full ROM, no lymphadenopathy and no JVD Chest: COMMONS NORMALS: normal inspection of the chest Resp: COMMON NORMALS: normal respiratory effort, No use of accessory muscles and clear to auscultation bilaterally AUSCULTATION: clear to auscultation bilaterally Cardio: COMMON NORMALS: no JVD, regular rate, regular rhythm, No murmurs present (Cardio) and Peripheral pulses 2+ throughout RATE: regular rate RHYTHM: regular rhythm PERIPHERAL PULSES: Peripheral pulses 2+ throughout GI: OTHER: Patient has soft abdomen. She has recent surgical scars in various locations in her abdomen. They are well approximated by saud. There is no erythema or drainage noted. There is a wound VAC in the left side of her abdomen which is draining serosanguineous fluid. He does have some mild tenderness in the right side of her abdomen to palpation but no rebound or guarding. GI image (female): 1. Approximated incision 2. Approximated incision 3. Approximated incision with wound drain : COMMON NORMALS: Yes no CVA tenderness BLADDER/KIDNEY EXAM: Yes no CVA tenderness Back/Pelvis: COMMON NORMALS: no CVA tenderness, thoracic and lumbar spine norm al to inspection and no thoracic nor lumbar tenderness Extremity: COMMON NORMALS: normal to inspection, full ROM, capillary refill normal, no calf tenderness and no pedal edema Neuro: COMMON NORMALS: patient oriented x3, moves all extremities, no focal motor deficits and no sensory deficits noted CRANIAL NERVES: Yes CN normal except as noted SPEECH: speech normal Psych: COMMON NORMALS: mental status grossly normal and cooperative Skin: COMMON NORMALS: no rashes or lesions noted, turgor normal and no petechiae GENERAL SKIN EXAM: no rashes or lesions noted and turgor normal Course Reevaluation(s): Reevaluation #1: Patient is comfortable and stable. No new or focal findings on reevaluation. I discussed current findings. Suggestive of urinary tract infection. Otherwise no other concerning findings. Her imaging does not reveal any evidence of free air or other concerning postsurgical changes. Plan will be to discharge on antibiotics and she has a follow-up with Dr. Spencer on Tuesday. Time: 11:28 Vital Signs: Vital signs: Vital Signs Temperature 97.9 F 11/15/21 09:27 Pulse Rate 60 11/15/21 09:38 Respiratory Rate 16 11/15/21 09:27 Blood Pressure 142/69 11/15/21 09:38 Pulse Oximetry 96 11/15/21 09:38 Oxygen Delivery Me thod 11/15/21 09:38 MDM - Abdominal Pain Medical Decision Making Patient status post lap band reversal who comes to the emergency department because of right lower quadrant and right flank discomfort. Imaging reassuring at this time. Other studies reveal evidence of urinary tract infection. No evidence of other ongoing emergency medical condition at this time. We will begin empiric therapy and she has post operative follow-up with her surgeon on Tuesday. Lab Data I reviewed the patient's lab results. : 11/15/21 09:57 11/15/21 09:57 Labs/Radiology: Radiology Impressions Abdomen/Pelvis CT 11/15/21 09:38 IMPRESSION: 1. Postoperative changes in the anterior abdominal wall. Subcutaneous edema, inflammation or hemorrhage. 2. Diverticulosis without diverticulitis. 3. No bowel obstruction or ileus. 4. Normal appendix. Laboratory Results WBC 4.3 10^3/uL (4.0-10.0) 11/15/21 09:57 RBC 4.19 10^6/uL (4.1-5.3) 11/15/21 09:57 Hgb 11.8 g/dL (11.5-15.3) 11/15/21 09:57 Hct 38.3 % (37.0-47.0) 11/15/21 09:57 MCV 91.4 fl (81-99) 11/15/21 09:57 MCH 28.2 pg (28.0-34.0) 11/15/21 09:57 MCHC 30.8 g/dL (30.0-36.0) 11/15/21 09:57 RDW 16.5 % (12.1-15.1) H 11/15/21 09:57 Plt Count 187 10^3/cmm (130-400) 11/15/21 09:57 MPV 9.9 fL (7.4-10.4) 11/15/21 09:57 Neut % (Auto) 53.5 % 11/15/21 09:57 Lymph % (Auto) 30.6 % 11/15/21 09:57 [place] % (Auto) 10.6 % 11/15/21 09:57 Eos % (Auto) 4.4 % 11/15/21 09:57 Baso % (Auto) 0.9 % 11/15/21 09:57 Neut # (Auto) 2.31 10^3/uL (1.8-7.7) 11/15/21 09:57 Lymph # (Auto) 1.3 10^3/uL (0.8-4.8) 11/15/21 09:57 [place] # (Auto) 0.5 10^3/uL (0.2-0.9) 11/15/21 09:57 Eos # (Auto) 0.2 10^3/uL (0.0-0.8) 11/15/21 09:57 Baso # (Auto) 0.0 10^3/uL (0.0-0.1) 11/15/21 09:57 Nucleated RBC % (auto) 0 % 11/15/21 09:57 Nucleated RBCs # 0.0 /100WBC 11/15/21 09:57 Sodium 145 mmol/L (136-145) 11/15/21 09:57 Potassium 3.4 mmol/L (3.5-5.1) L 11/15/21 09:57 Chloride 106 mmol/L (98-107) 11/15/21 09:57 Carbon Dioxide 29 mmol/L (22-29) 11/15/21 09:57 Anion Gap 13.4 (5-19) 11/15/21 09:57 BUN 13 mg/dL (8-23) 11/15/21 09:57 Creatinine 0.5 mg/dL (0.5-0.9) 11/15/21 09:57 GFR Calculation 122.7 mL/min (90-130) 11/15/21 09:57 Glucose 96 mg/dL (65-115) 11/15/21 09:57 Calculated Osmolality 300 mOsm/kg (285-295) H 11/15/21 09:57 Calcium 8.9 mg/dL (8.5-10.5) 11/15/21 09:57 Total Bilirubin 0.3 mg/dL (0.15-1.2) 11/15/21 09:57 AST 20 U/L (0-32) 11/15/21 09:57 ALT 13 U/L (0-33) 11/15/21 09:57 Alkaline Phosphatase 73 U/L (35-105) 11/15/21 09:57 Total Protein 6.2 g/dL (6.6-8.7) L 11/15/21 09:57 Albumin 3.8 g/dL (3.5-5.2) 11/15/21 09:57 Globulin 2.4 g/dL (1.3-4.6) 11/15/21 09:57 Urine Color Yellow (Yellow) 11/15/21 09:49 Urine Appearance Hazy (CLEAR) A 11/15/21 09:49 Urine pH 8 (5-7) H 11/15/21 09:49 Ur Specific Muir 1.015 (1.005-1.030) 11/15/21 09:49 Urine Protein Neg (Negative) 11/15/21 09:49 Urine Glucose (UA) Norm (Normal) 11/15/21 09:49 Urine Ketones 1+ (Negative) H 11/15/21 09:49 Urine Blood Neg (Negative) 11/15/21 09:49 Urine Nitrate Negative (Negative) 11/15/21 09:49 Urine Bilirubin Neg (Negative) 11/15/21 09:49 Prot Sulfosalicylic Acd Negative (Negative) 11/15/21 09:49 Urine Urobilinogen 4 mg/dL (Negative) H 11/15/21 09:49 Ur Leukocyte Esterase 1+ (Negative) H 11/15/21 09:49 Urine RBC None /hpf (0-2) 11/15/21 09:49 Urine WBC 15-25 /hpf (0-5) H 11/15/21 09:49 Ur Squamous Epith Cells 5-10 /hpf (0-5) H 11/15/21 09:49 Amorphous Sediment Not Reportable 11/15/21 09:49 Urine Bacteria 1+ /hpf (NONE) H 11/15/21 09:49 Urine Mucus 2+ /hpf 11/15/21 09:49 Discharge Plan Discharge Patient Disposition: Home Clinical Impression: Urinary tract infection Condition: Stable Prescriptions: New cephalexin 500 mg capsule 500 mg PO TID 7 Days Qty: 21 0RF No Action lovastatin 20 mg tablet 20 mg PO DAILY diphenhydramine HCl 50 mg capsule 50 mg PO DAILY PRN (Reason: allergies) hydrocodone-acetaminophen 5-325 mg tablet 1 tab PO Q6H PRN (Reason: pain) Qty: 28 0RF pantoprazole [Protonix] 40 mg tablet,delayed release (DR/EC) 40 mg PO DAILY 30 Days Qty: 30 3RF Discharge Orders: Discharge ED (Routine); Ordered 11/15/21 Ordered By: Jad Camarena Referrals: Neelima Gong MD [Primary Care Provider] - Discharge Diet: As Directed Discharge Activity: Limit activity as instructed Patient Instructions: Opioid Safety, Pain Management Activity Restrictions/Additional Instructions: As we discussed while you are in the emergency department have evidence of a kidney infection. We have prescribed antibiotics to treat that condition. Follow-up with Dr. Vera rothman on Tuesday as scheduled. If you develop fevers, increasing pain, nausea vomiting diarrhea any concerning symptoms return to this emergency department immediately. Coding Level of Care Code ED Schedule Analyst for Romelia Fwclarisa Exam Comprehensive
[2021-11-15 09:59] VITALS: BP 142/69; PULSE 65; O2SAT 96
[2021-11-15 10:09] LABS: Basophils % 0.9 %; Eosinophils # 0.2 10^3/uL (0.0-0.8); Eosinophils % 4.4 %; Hematocrit 38.3 % (37.0-47.0); Hemoglobin 11.8 g/dL (11.5-15.3); Lymphocytes # 1.3 10^3/uL (0.8-4.8); Lymphocytes % 30.6 %; Mean Corpuscular HGB Conc 30.8 g/dL (30.0-36.0); Mean Corpuscular Hemoglobin 28.2 pg (28.0-34.0); Mean Corpuscular Volume 91.4 fl (81-99); Mean Platelet Volume 9.9 fL (7.4-10.4); Monocytes # 0.5 10^3/uL (0.2-0.9); Monocytes % 10.6 %; Neutrophils # 2.31 10^3/uL (1.8-7.7); Neutrophils % 53.5 %; Nucleated Red Blood Cells % 0 %; Platelet Count 187 10^3/cmm (130-400); Red Blood Count 4.19 10^6/uL (4.1-5.3); Red Cell Distribution Width 16.5 % (12.1-15.1); White Blood Count 4.3 10^3/uL (4.0-10.0)
[2021-11-15 10:26] LABS: Alanine Aminotransferase 13 U/L (0-33); Albumin Level 3.8 g/dL (3.5-5.2); Alkaline Phosphatase 73 U/L (35-105); Anion Gap 13.4 (5-19); Aspartate Amino Transferase 20 U/L (0-32); Blood Urea Nitrogen 13 mg/dL (8-23); Calcium 8.9 mg/dL (8.5-10.5); Carbon Dioxide 29 mmol/L (22-29); Chloride 106 mmol/L (98-107); Creatinine Clr Calc Pharmacy 66.6795; Globulin 2.4 g/dL (1.3-4.6); Glomerular Filtration Rate 122.7 mL/min (90-130); Glucose 96 mg/dL (65-115); Osmolality Calculated 300 mOsm/kg (285-295); Potassium 3.4 mmol/L (3.5-5.1); Sodium 145 mmol/L (136-145); Total Bilirubin 0.3 mg/dL (0.15-1.2); Total Protein 6.2 g/dL (6.6-8.7)
[2021-11-15 10:29] VITALS: PULSE 65; O2SAT 96
[2021-11-15 11:00] VITALS: BP 139/63; PULSE 61; O2SAT 96
[2021-11-15 11:09] LABS: Add Urine Microscopic? YES; Bilirubin Urine Neg (Negative); Blood Urine Neg (Negative); Glucose Urine UA Norm (Normal); Ketones Urine 1+ (Negative); Leukocyte Esterase Urine 1+ (Negative); Nitrate Urine Negative (Negative); Protein Urine Neg (Negative); Specific Gravity, Urine 1.015 (1.005-1.030); Sulfosalicylic Acid Urine Negative (Negative); Urine Appearance Hazy (CLEAR); Urine Color Yellow (Yellow); Urobilinogen Urine 4 mg/dL (Negative); pH Urine 8 (5-7)
[2021-11-15 11:12] LABS: WBC Urine 15-25 /hpf (0-5)
[2021-11-15 11:14] LABS: Add Urine Culture? Yes; Bacteria Urine 1+ /hpf; Mucus Urine 2+ /hpf
[2021-11-15] MEDS: cephALEXin 500 mg Capsule PO (11:41)
[2021-11-15 11:56] VITALS: BP 135/50; PULSE 65; O2SAT 95
== END 2021-11-15 11:55 | disposition home or self-care (01) ==
PROVIDERS: Emergency Provider Emergency Medicine; PCP Internal Medicine
DX: N39.0 Urinary tract infection, site not specified (principal); Z90.710 Acquired absence of both cervix and uterus; Z90.49 Acquired absence of other specified parts of digestive tract; Z98.84 Bariatric surgery status
CPT/HCPCS: 74176; 80053; 81001; 85025; 87086; 99284

== ENCOUNTER → 2021-11-18 11:03 | Outpatient (BNVA) | payer MEDICARE, SELFPAY | PROVIDERS: PCP Internal Medicine; Visit Provider Surgery | DX: Z09 Encounter for follow-up examination after completed treatment for conditions other than malignant neoplasm (principal) | CPT/HCPCS: 99024 ==

== ENCOUNTER 2021-12-25 09:07 | Outpatient (CLI) | payer MEDICARE, SELFPAY ==
--- NOTE | 2021-12-25 09:13 | MM_ITS ---
WS: [id number] VIEWS: MLO and CC views both breasts. 3D digital tomosynthesis is also included in this exam. Comparison made with prior exam of 12/06/2014. 01/05/2016, 03/22/2017, 07/11/2018. 01/11/2020. 12/16/2020. Findings: There was no sign of mass, architectural distortion or suspicious calcification in either breast. Fa [place]ty MM/[place] [id number] Impression: BI-RADS: 2-Benign FOLLOW-UP: 1 Year Follow-up This mammogram was also analyzed by the Computer Aided Detection System R2 Imag e Accounting Systems Manager.
== END 2021-12-25 09:08 | disposition home or self-care (01) ==
PROVIDERS: PCP Internal Medicine; Visit Provider Internal Medicine
DX: Z12.31 Encounter for screening mammogram for malignant neoplasm of breast (principal)
CPT/HCPCS: 77063; 77067

== ENCOUNTER → 2021-12-30 09:03 | Outpatient (BNVA) | payer MEDICARE, SELFPAY | PROVIDERS: PCP Internal Medicine; Visit Provider Surgery | DX: Z09 Encounter for follow-up examination after completed treatment for conditions other than malignant neoplasm (principal) | CPT/HCPCS: 99024 ==

== ENCOUNTER → 2022-08-11 08:16 | Outpatient (BNVA) | payer MEDICARE, SELFPAY | PROVIDERS: PCP Internal Medicine; Visit Provider Otolaryngology | DX: Z71.1 Person with feared health complaint in whom no diagnosis is made (principal) | CPT/HCPCS: 99203 ==

== ENCOUNTER → 2022-10-11 11:06 | Outpatient (BNVA) | payer MEDICARE, SELFPAY | PROVIDERS: PCP Internal Medicine; Visit Provider Specialist | DX: M17.11 Unilateral primary osteoarthritis, right knee (principal) | CPT/HCPCS: 20610; 73560; 73565; 99204; J7327 ==

== ENCOUNTER 2023-01-10 08:56 | Outpatient (CLI) | payer MEDICARE, SELFPAY ==
--- NOTE | 2023-01-10 08:59 | MM_ITS ---
WS: [id number] BILATERAL SCREENING DIGITAL TOMOSYNTHESIS MAMMOGRAM WITH CAD HISTORY: SCREENING COMPARISON: 12/25/2021, 12/16/2020 Bilateral CC and MLO views with tomosynthesis and synthetic mammography submitted. Computer aided det ection analyzed. Breast composition: The breasts are almost entirely fatty. No suspicious masses, microcalcifications or architectural distortion. IMPRESSION: MM/[place] [id number] BI-RADS: 1-Negative FOLLOW UP: 1 Year Follow-up
== END 2023-01-10 08:57 | disposition home or self-care (01) ==
LOC: RAD 08:56
PROVIDERS: PCP Internal Medicine; Visit Provider Internal Medicine
DX: Z12.31 Encounter for screening mammogram for malignant neoplasm of breast (principal)
CPT/HCPCS: 77063; 77067

== ENCOUNTER 2023-11-07 14:05 | Outpatient (CLI) | payer MEDICARE, SELFPAY ==
--- NOTE | 2023-11-07 14:07 | XR_ITS ---
WS: [id number] SCREENING DEXA SCAN [employer] CLINICAL INFORMATION: ASYMPTOMATIC POSTMENOPAUSAL STATUS COMPARISON: 2020 FINDINGS: The L1-L4 bone mineral density measures 1.044 g/cm2. This corresponds to a T score score of -1.1 and Z score of -0.5. Left femoral neck bone mineral density measures 0.857 g/cm2. This corresponds to a T score of -1.2 an d Z score of -0.5. Right femoral neck bone mineral density measures 0.746 g/cm2. This corresponds to a T score -2.1of an d Z score of -1.4. Mean femoral neck bone mineral density measures 0.801 g/cm2. This corresponds to a T score of -1.6 an d Z score of -0.9. XR/XR DEXA axial skeleton* [id number] IMPRESSION: Osteopenia lumbar spine. Osteopenia femoral necks. Patient's FRAX calculated 10 year probability for major osteoporotic fracture i s 15.1% and osteoporotic hip fracture is 4.3%. Bone mineral density lumbar spine decreased -5.4% Bone mineral density decreased -2.1% femoral necks
== END 2023-11-07 14:06 | disposition home or self-care (01) ==
LOC: RAD 14:05
PROVIDERS: PCP Internal Medicine; Visit Provider Internal Medicine
DX: Z13.820 Encounter for screening for osteoporosis (principal); Z78.0 Asymptomatic menopausal state; M85.80 Other specified disorders of bone density and structure, unspecified site
CPT/HCPCS: 77080

== ENCOUNTER 2024-01-16 14:40 | Outpatient (CLI) | payer MEDICARE, SELFPAY ==
--- NOTE | 2024-01-16 | MM_ITS ---
WS: [id number] Bilateral screening 3D tomosynthesis digital mammogram, 01/16/2024 12:00 AM Clinical Data: SCREENING Comparison: 01/10/2023, 12/25/2021, 12/16/2020, 11/02/2019, 07/11/2018, 03/22/2017, 01/05/2016, 5, 05/16/2012, 01/13/2010. Findings: No spiculated masses or clustered calcifications are seen. There are no secondary signs of carcinoma . MM/MM [facility] tomosynthesis [id number] Impression: Negative bilateral mammogram unchanged. Recommend annual screening mammograms. BIRADS: 1 - Negative. FOLLOW UP: 1 Year Follow-up DENSITY: The breasts are almost entirely fatty. The CAD wash test checker was used
== END 2024-01-16 14:41 | disposition home or self-care (01) ==
LOC: RAD 14:41
PROVIDERS: PCP Internal Medicine; Visit Provider Internal Medicine
DX: Z12.31 Encounter for screening mammogram for malignant neoplasm of breast (principal)
CPT/HCPCS: 77063; 77067

== ENCOUNTER 2024-03-31 08:33 | Emergency (ER) | payer MEDICARE, SELFPAY ==
[2024-03-31 09:37] VITALS: BP 144/72; PULSE 79; RESP 18; TEMP 37.4; O2SAT 96; BMI 36.0
--- NOTE | 2024-03-31 10:03 | W.ED.URI ---
HPI - URI/Sore Throat General: Chief Complaint: Upper Respiratory Infection Stated Complaint: right side of neck is swollen Time Seen by Provider: 03/31/24 08:45 History of Present Illness: 68-year-old female presents with some swollen lymph nodes, sore throat negative mild cough this been going on since this morning. 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 Associated symptoms: Deny abdominal pain, chest pain, nausea or vomiting Related Data Home Medications ?Medication ?Instructions ?Recorded ?Confirmed lovastatin 20 mg tablet 20 mg PO DAILY 04/02/19 03/31/24 omeprazole 40 mg capsule,delayed 40 mg PO DAILY 03/31/24 03/31/24 release Allergies Allergy/AdvReac Type Severity Reaction Status Date / Time ciprofloxacin Allergy ALGY-Rash Verified 10/11/22 11:17 Penicillins Allergy hives Verified 10/11/22 11:17 Sulfa (Sulfonamide Allergy anaphylaxis Verified 10/11/22 11:17 Antibiotics) Review of Systems Const: Reports: fatigue ENMT: Reports: throat pain Card: Denies: chest pain or palpitations Resp: Denies: dyspnea or wheezing GI: Denies: abdominal pain, nausea or vomiting : Denies: flank pain or difficulty voiding Yovani/Lymph: Reports: tender lymph nodes PFSH ED PFSH: Medical History Hypercholesteremia Esophagitis Complication of gastric band procedure Diverticulosis Surgical History H/O: hysterectomy History of colonoscopy Hx of laparoscopic gastric banding Family History Mother Diabetes Social History Smoking and tobacco/nicotine status: never used tobacco/nicotine Alcohol intake: never Substance/Drug Use: never Physical Exam Const: COMMON NORMALS: no acute distress, average body habitus, patient oriented x3, healthy appearing and alert HENMT: THROAT: posterior oropharynx abnormal erythema Lymph: LYMPHATIC: lymphadenopathy (Cervical mild) Resp: COMMON NORMALS: normal respiratory effort and clear to auscultation bilaterally EFFORT & INSPECTION: Yes able to speak in complete sentences AUSCULTATION: clear to auscultation bilaterally Cardio: COMMON NORMALS: regular rate and regular rhythm RATE: regular rate RHYTHM: regular rhythm GI: COMMON NORMALS: Soft to palpation and non-tender PALPATION: Yes Soft to palpation Neuro: COMMON NORMALS: patient oriented x3 SENSORIUM/ORIENTATION: Yes alert Skin: COMMON NORMALS: no rashes or lesions noted GENERAL SKIN EXAM: no rashes or lesions noted Course Vital Signs: Vital signs: Vital Signs Temperature 99.3 F 03/31/24 09:37 Pulse Rate 79 03/31/24 09:37 Respiratory Rate 18 03/31/24 09:37 Blood Pressure 144/72 03/31/24 09:37 Pulse Oximetry 96 03/31/24 09:37 Oxygen Delivery Me thod Room Air 03/31/24 09:37 MDM - URI/Sore Throat Medical Decision Making Patient's positive for influenza A. Discussed with her supportive care including Tylenol, ibuprofen, elderberry, lots of fluids. She was offered Tamiflu but declined. Patient stable and discharged home. Lab Data Laboratory Results Coronavirus (PCR) Negative (Negative) 03/31/24 10:05 Influenza A (PCR) Positive (Negative) 03/31/24 10:05 Influenza Type B (PCR) Negative (Negative) 03/31/24 10:05 RSV (PCR) Negative (Negative) 03/31/24 10:05 Group A Strep Rapid Negative (Negative) 03/31/24 09:44 No radiology studies performed this visit Discharge Plan Discharge Patient Disposition: Home Clinical Impression: Influenza Condition: Stable Prescriptions: No Action lovastatin 20 mg tablet 20 mg PO DAILY omeprazole 40 mg capsule,delayed release(DR/EC) 40 mg PO DAILY Discharge Orders: Discharge ED (Routine); Ordered 03/31/24 Ordered By: Alex Mcgee Referrals: Neelima Gong MD [Primary Care Provider] - Discharge Diet: Usual diet Discharge Activity: Increase activity as tolerated Patient Instructions: Influenza (DC), Opioid Safety, Pain Management Activity Restrictions/Additional Instructions: Tylenol or ibuprofen as needed for discomfort. Be sure you are drinking plenty of fluids and get plenty rest. May use [id number] elderberry. Follow with your primary care provider in about a week if symptoms or not improving. Please do not return to work until you are fever free for at least 24 to 36 hours without any Tylenol ibuprofen. Print Language: Latvian Coding Level of Care Code ED Supervisor Instrument Maintenance for Romelia Resendiz
[2024-03-31 10:14] LABS: Rapid Strep A Test Negative (Negative)
[2024-03-31 10:52] LABS: Covid PCR NEGATIVE (Negative); Influenza A POSITIVE (Negative); Influenza B NEGATIVE (Negative); Respiratory Syncytial Virus Ce NEGATIVE (Negative)
[2024-03-31 11:17] VITALS: PULSE 69; O2SAT 99
== END 2024-03-31 11:18 | disposition home or self-care (01) ==
PROVIDERS: Family Medicine; Emergency Provider Student in an Organized Health Care Education/Training Program; PCP Internal Medicine
DX: J10.1 Influenza due to other identified influenza virus with other respiratory manifestations (principal); Z11.52 Encounter for screening for COVID-19
CPT/HCPCS: 87081; 87637; 87880; 99283

== ENCOUNTER → 2024-06-20 15:34 | Outpatient (BNVA) | payer MEDICARE, SELFPAY | PROVIDERS: PCP Internal Medicine; Visit Provider Specialist | DX: S83.282A Other tear of lateral meniscus, current injury, left knee, initial encounter (principal); X58.XXXA Exposure to other specified factors, initial encounter | CPT/HCPCS: 73560; 73565; 99214 ==

== ENCOUNTER 2024-07-10 10:53 | Outpatient (CLI) | payer MEDICARE, SELFPAY ==
--- NOTE | 2024-07-10 11:00 | MR_ITS ---
WS: [id number] MRI LEFT KNEE HISTORY: Fell 9 weeks ago. Swelling and bruising. COMPARISON: Radiograph 06/20/2024 Anterior cruciate ligament: Intact. Posterior cruciate ligament: Intact. Medial collateral ligament: Small amount of fluid along the MCL. No tear is identified. There is fluid both medial and lateral to the MCL. Posterior lateral corner structures: Intact. There is a small amount of fluid tracking along the popliteus tendon. Medial menisci: Normal anterior horn. There is mild intrasubstance degeneration throughout the posterior horn. Mild increased signal but no tear identified. Lateral meniscus: Intact. Normal signal, size and shape. Extensor mechanism: Distal quadriceps tendon and patellar tendons are intact. Fluid and soft tissue: Very small suprapatellar joint effusion. There is a small Thomas's cyst. Osseous and articular structures: Patellofemoral compartment: Minimal narrowing. No marrow edema. Medial compartment: Minimal narrowing of the medial compartment. There is a very small amount of edema along the medial most tibial plateau. No fracture. Mild chondromalacia along the weightbearing surface of the femoral condyle. Lateral compartment: Minimal narrowing. MR/MR knee LT wo con* [id number] IMPRESSION: 1. No ACL or meniscal tear. 2. Small amount of fluid tracking along the popliteus tendon. No popliteus ten don injury identified. This may be a small ganglion or sympathetic fluid associ ated with an injury. 3. Mild MCL sprain. No MCL tear. 4. Small Thomas's cyst. 5. Mild tricompartment joint space narrowing. Mild chondromalacia weightbearin g surface medial femoral condyle.
== END 2024-07-10 10:54 | disposition home or self-care (01) ==
PROVIDERS: PCP Internal Medicine; Visit Provider Specialist
DX: S83.412A Sprain of medial collateral ligament of left knee, initial encounter (principal); W19.XXXA Unspecified fall, initial encounter; R93.6 Abnormal findings on diagnostic imaging of limbs; M71.22 Synovial cyst of popliteal space [Baker], left knee; M17.12 Unilateral primary osteoarthritis, left knee; M94.262 Chondromalacia, left knee
CPT/HCPCS: 73721

== ENCOUNTER → 2024-07-18 08:49 | Outpatient (BNVA) | payer MEDICARE, SELFPAY | PROVIDERS: PCP Internal Medicine; Visit Provider Specialist | DX: M17.11 Unilateral primary osteoarthritis, right knee (principal); S83.411D Sprain of medial collateral ligament of right knee, subsequent encounter; X58.XXXD Exposure to other specified factors, subsequent encounter | CPT/HCPCS: 99214 ==

== ENCOUNTER 2024-07-22 05:00 | Outpatient (RCR) | payer MEDICARE, SELFPAY | END 2024-08-20 23:59 | disposition home or self-care (01) | LOC: APT 05:00 | PROVIDERS: Visit Provider Specialist | DX: M25.562 Pain in left knee (principal) | CPT/HCPCS: 97110; 97161 ==

== ENCOUNTER 2024-08-21 05:00 | Outpatient (RCR) | payer MEDICARE, SELFPAY | END 2024-09-20 23:59 | disposition home or self-care (01) | LOC: APT 05:00 | PROVIDERS: Visit Provider Specialist | DX: M25.562 Pain in left knee (principal) | CPT/HCPCS: 97110; 97112; 97530 ==

== ENCOUNTER → 2024-10-03 08:10 | Outpatient (BNVA) | payer MEDICARE, SELFPAY | PROVIDERS: PCP Pediatrics; Visit Provider Specialist | DX: M17.11 Unilateral primary osteoarthritis, right knee (principal); S83.411D Sprain of medial collateral ligament of right knee, subsequent encounter; X58.XXXD Exposure to other specified factors, subsequent encounter | CPT/HCPCS: 20610; 73560; 73565; 99214; J1100; J2795; J3301; J9999 ==